=== PATIENT | female | born 2000 | race Caucasian/White ===

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

== ENCOUNTER 2025-02-23 22:14 | Emergency (ER) | payer OTHER, SELFPAY ==
[2025-02-23 22:15] VITALS: BP 139/88; PULSE 80; RESP 16; TEMP 36.9; O2SAT 100; BMI 24.0
[2025-02-23 22:47] LABS: Hematocrit 37.2 % (37-47); Hemoglobin 13.0 g/dL (12.0-15.0); Immature Granulocytes Count 0.030 X10^3/uL (0.0-0.0); Mean Corp Hgb Conc 34.9 g/dL (32-36); Mean Corpuscular Volume 90.1 fL (81-99); Mean Platelet Vol. 10.7 fl (6.2-12.0); NRBC Flagged by Analyzer 0 % (0-5); Platelet Count 203 K/mm3 (150-450); RBC Distribution Width CV 12.5 % (11.6-14.6); RBC Distribution Width SD 41.0 fl (35.1-43.9); Red Blood Count 4.13 M/mm3 (4.2-5.4); White Blood Count 8.2 K/mm3 (4.4-11.0)
--- NOTE | 2025-02-23 22:56 | US_ITS ---
PROCEDURE: TRANSVAGINAL W/PREG US 02/23/2025 REASON FOR EXAM: CONCERN FOR ECTOPIC, LEFT PAIN TECHNIQUE: TRANSVAGINAL W/PREG US COMPARISON: No FINDINGS Within the uterine cavity, there is a gestational sac and yolk sac. No pole or heart tones. Estimated gestational age of 5 weeks and 2 days by mean sac diameter. Right ovary measures 1 x 2 x 3 cm with blood flow. The left ovary measures 1 x 2 x 3 cm with blood flow. No pelvic free fluid. US/Transvaginal w/Preg US IMPRESSION: Intrauterine gestation. Viability is not yet determined. Consider follow up i alva. [facility]
--- NOTE | 2025-02-23 22:56 | ED.VIS.FEGU ---
HPI HPI - Female History of Present Illness Chief Complaint: Vag Bld, Preg Narrative Narrative: Patient is a 25-year-old female who presented to the emergency department chief complaint of lower abdominal pain, vaginal spotting that started about 24 hours ago. She states that she called the on-call [employer]ICE [employer]PATCHER and they are concerned that this could be ectopic therefore they sent her here to be further evaluated. Patient states that they did not have intercourse prior to her bleeding starting. States that overall she does not feel well and is having pain in the left lower quadrant of her abdomen. PFSH PFSH Medical History no medical history Home Medications ?Medication ?Instructions ?Recorded ?Last Taken ?Type NK 08/22/18 Unknown History Allergy/AdvReac Type Severity Reaction Status Date / Time amoxicillin (From Augmentin) Allergy Rash Verified 02/23/25 22:47 clavulanic acid (From Allergy Rash Verified 02/23/25 22:47 Augmentin) Family History no significant family his Surgical History no surgical history Social History Smoking Status: Never smoker ROS ROS ED ROS Narrative Constitutional: Denies any fevers or chills Cardiovascular: Denies chest pain Respiratory: Denies cough wheezing shortness of breath Abdomen: Complains of abdominal pain as noted above as well as nausea but states is secondary to IV placement : Denies any urinary symptoms but does complain of vaginal spotting as noted above Neurological: Denies any numbness, wheeze, tingling Skin: Denies any rashes or lesions EXAM Physical Exam Narrative Exam Narrative: General: Patient was lying in bed rest comfortably did not appear to be in acute distress Head: Atraumatic, normocephalic Eyes: PERRL bilaterally, EOMI about a, no conjunctival injection noted Neck: Soft, supple, trachea midline Cardiovascular: Regular rate and rhythm Respiratory: Clear to auscultation bilaterally Abdomen: Soft, nondistended, tenderness to palpation in the left lower quadrant no rebound or guarding on exam Extremities: +5/5 strength noted in the bilateral upper and lower extremities Neurological: Patient follow commands knew that she was at [facility] year is 2024 Skin: Warm, dry, intact no rashes or lesions noted Const Vital Signs: 02/23/25 22:15 Temperature 98.4 F Temperature Source Oral Pulse Rate 80 Respiratory Rate 16 Blood Pressure 139/88 H Blood Pressure Mean 105 Pulse Ox 100 Oxygen Delivery Method Room Air MDM MDM MDM Narrative Medical decision making narrative: Patient is a 25-year-old female who presents to the emergency department chief complaint of left lower quadrant abdominal pain, vaginal spotting and concern for ectopic . Patient once again states that she believes that she is approximately 5 weeks . On the differential diagnosis includes but not limited to ectopic , threatened miscarriage, miscarriage, UTI. Once workup is obtained reviewed she will be reevaluated. Patient states that she follows with a practice in [place]. Patient CBC reviewed showed no evidence leukocytosis white blood count normal 8.2, he was 13, platelet count of 203. Patient sodium was 130, potassium normal 3.9, creatinine was 0.64. Patient's AST and ALT were 14 and 10 respectively. Patient lipase was 33, hCG quant was 2539 with positive test. Patient's urinalysis reviewed showed no evidence of infection. Patient's ultrasound transvaginal was reviewed which showed intrauterine gestation no pelvic free fluid noted. Called and discussed with on-call physician for [employer] no doc Dr. Garcia who states that she can follow-up with her doctor tomorrow and have a repeat quant in 48 hours. Patient was placed on pelvic rest. She is encouraged return with worsening symptoms or concerns. She is agreeable to plan as well as her significant other bedside all question concerns answered she was discharged home in stable condition. Lab Data Labs: Laboratory Results - last 24 hr 02/23/25 02/24/25 22:38 00:01 WBC 8.2 RBC 4.13 L Hgb 13.0 Hct 37.2 MCV 90.1 MCH 31.5 MCHC 34.9 RDW Std Deviation 41.0 RDW Coeff of Ren 12.5 Plt Count 203 MPV 10.7 Immature Gran % (Auto) 0.400 Neut % (Auto) 47.2 Lymph % (Auto) 39.2 [place] % (Auto) 10.4 H Eos % (Auto) 2.2 Baso % (Auto) 0.6 Absolute Neuts (auto) 3.9 Absolute Lymphs (auto) 3.20 Nucleated RBC % 0 Sodium 138 Potassium 3.9 Chloride 104 Carbon Dioxide 22.6 Anion Gap 11 BUN 15 Creatinine 0.64 L Estim Creat Clear Calc 131.81 Est GFR (MDRD) Non-Af 126 BUN/Creatinine Ratio 23.6 H Glucose 90 Calcium 9.4 Total Bilirubin 0.21 AST 14 ALT 10 Alkaline Phosphatase 58 Total Protein 6.9 Albumin 4.3 Globulin 2.6 Albumin/Globulin Ratio 1.7 Lipase 33 HCG, Quant 2539 H Serum , Qual POSITIVE Urine Color Yellow Urine Clarity Clear Urine pH 6.5 Ur Specific [place] 1.015 Urine Protein Negative Urine Glucose (UA) Normal Urine Ketones Negative Urine Occult Blood Negative Urine Nitrite Negative Urine Bilirubin Negative Urine Urobilinogen Normal Ur Leukocyte Esterase Negative Urine RBC 0 SEEN Urine WBC 0 SEEN Ur Squamous Epith Cells 0-5 SEEN Urine Bacteria 1+ Urine Mucus 1+ Radiography Diagnostic Testing: Clinical Impression(s) from Imaging Studies Obstetrics Ultrasound 02/23/25 22:56 IMPRESSION: Intrauterine gestation. Viability is not yet determined. Consider follow up imaging. Reading Location: [place] [address] Discharge Plan Triage Chief Complaint: Vag Bld, Preg ED Provider: Ricky Leblanc Dx/Rx/DC Orders Clinical Impression: Vaginal bleeding affecting early , Abdominal pain Prescriptions: No Action NK Primary Care Provider: Care Physician,No Primary Referrals: Care Physician,No Primary [Primary Care Provider] - Activity Restrictions/Additional Instructions: You were placed on pelvic rest until you are cleared by your POLICE RADIO DISPATCHER meaning do not insert anything in your vagina. Your ultrasound here did show a intrauterine gestation you were given a hard copy of your results for your own records and to show your POLICE RADIO DISPATCHER. Your quant level was noted to be 2539. Call your OBs office tomorrow morning when they open up for a follow-up appointment. You will need a repeat quant in 48 hours. Return with worsening symptoms or any other concerns Print Language: Occitan Disposition Disposition: Home, Self Care
[2025-02-23 23:02] LABS: Internal QC Validated? YES +Cl - CLEAR BKGD; Record Kit Lot#, Serum Preg. 0000962302
[2025-02-23 23:03] LABS: Pregnancy, Serum, hCG Quali. POSITIVE Negative
[2025-02-23 23:11] LABS: AST(SGOT) 14 U/L (<=31); Alanine Aminotransfer ALT/SGPT 10 U/L (<=34); Albumin, Serum 4.3 g/dL (3.5-5.0); Alkaline Phosphatase 58 U/L (35-104); Anion Gap 11 (5-15); BUN 15 mg/dL (4-19); BUN/Creat Ratio 23.6 RATIO (10-20); Calcium,Total 9.4 mg/dL (7.6-11.0); Carbon Dioxide 22.6 mmol/L (21.0-32.0); Chloride 104 mmol/L (98-108); Estimated Creatinine Clearance 131.81 ml/min (50-250); Globulin 2.6 g/dL (2.2-4.2); Glucose 90 mg/dL (70-99); Lipase 33 U/L (13-75); Potassium 3.9 mmol/L (3.3-5.1)
--- OUTSIDE RECORDS SUMMARY | 2025-02-23 23:12 | XMS RPT_ITS | CCD ---
Author Organization [facility] Care Team Providers Care Faculty Criminal Justice Name Role Phone ELVA PRIETO Unavailable Unavailable REFERRED, SELF Unavailable Unavailable BONY URIOSTEGUI Unavailable Unavaila Prasanna Raya Attending Unavailable Care Physician, No Primary Primary Care Unava ilable ELVA PRIETO Primary Care Unavailable COMFORT GALLAGHER Attending Unavailabl e NO FAMILY PHYSICIAN, 837 Primary Care Unavail able Allergies Allergy Classification Reported Allergen(s) Allergy Type Date of Onset Reaction(s) Facility (1 source) Amoxicillin Drug Allergy 9 [facility] Repository (1 source) Clavulanate Drug Allergy 9 [facility] Repository (1 source) AMOXICILLIN-POT CLAVULANATE; Translations: [AMOXICILLIN-POT CLAVULANATE] Propensity to adverse reactions to drug (disorder) 9 [facility] Other [place] Repository Problems Problem Classification Problem Date Documented Da te Episodic/Chronic Other non-traumatic joint disorders (1 source) Pain in right ankle and joints of right foot; Translations: [Acute right ankle pain] Onset: 05-31-2024 Episodic Sprains and strains (1 source) Sprain of unspecified ligament of right ankle, initial encounter; Translations: [Sprain of right ankle, unspecified ligament, initial encounter] Onset: 05-31-2024 Episodic Results Test Name Value Interpretation Reference Range Facil ity ALLIED HEALTHon 05-31-2024 ALLIED HEALTH HNO ID: [id number] Author: SAIMA GAINES RT(R) Service: Radiology Author Type: Technologist Type: Allied Health Filed: 05/31/2024 12:19 Note Text: Radiology Service Progress Note PATIENT NAME: John Mann DATE OF SERVICE: May 31, 2024 TIME: 12:18 PM PATIENT IDENTITY VERIFICATION COMPLETED USING TWO (2) IDENTIFIERS: Name and Date of confirmed by patient verbally. FALL SCREENING: Has the patient had 2 falls in the last year or 1 fall with injury or currently using an Ambulatory Assistive Device (Walker, Cane, Wheelchair, Crutches, etc.)? Emergency Room Patient: Screened in ED PATIENT GENDER DATA: Female. status: : No status: NO. 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 Pt stable and ambulatory. IV removed. No further questions at this time. [facility] ED PROV NOTEon 05-31-2024 ED PROV NOTE HNO ID: [id number] Author: COMFORT GALLAGHER MD Service: ? Author Type: Physician Type: ED Provider Notes Filed: 05/31/2024 13:29 Note Text: ED Provider Note Patient Name: John Mann : 2000 SERVICE DATE: 05/31/24 History Patient presents with: Ankle Injury: Pt was at an open burn call when she fell down stairs and rolled R ankle, has Hx of a strain in that ankle 4 years ago 4-year-old female with history of generalized anxiety disorder and depression who presents with right ankle pain. She reports twisting her ankle while running down stairs today while working a open burn prior to arrival. She has noted swelling and pain in the lateral aspect of her ankle since then. 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 Generalized anxiety disorder due to Depo? PAST SURGICAL HISTORY Procedure Laterality Date TUMOR REMOVAL (SPECIFY LOCATION) HX Right growth removal under right breast when 8 years old FAMILY HISTORY Problem Relation Age of Onset Hypertension Mother No Known Problems Sister No Known Problems Brother Hypertension Maternal Grandfather Heart disease Maternal Grandfather Prostate Cancer Other 62 Cancer Other female Social History Tobacco Use Smoking status: Never Smokeless tobacco: Never Vaping Use Vaping status: Never Used Substance and Sexual Activity Alcohol use: Never Drug use: Never Sexual activity: Yes Partners: Male control/protection: Condom ALLERGIES Allergen Reactions Augmentin [Amoxicil* Rash Review of Systems Musculoskeletal: Positive for joint swelling. Physical Exam Vitals [05/31/24 1149] BP Pulse Temp Temp src Resp SpO2 Weight Height 119/51 83 36.8 ?C (98.3 ?F) Oral 18 99 % 70.3 kg (155 lb) -- Physical Exam Vitals and nursing note reviewed. Constitutional: Appearance: Normal appearance. HENT: Head: Normocephalic and atraumatic. Musculoskeletal: Right ankle: Swelling present. No deformity or ecchymosis. Tenderness present over the lateral malleolus. Decreased range of motion. Normal pulse. Skin: General: Skin is warm and dry. Capillary Refill: Capillary refill takes less than 2 seconds. Neurological: General: No focal deficit present. Mental Status: She is alert and oriented to person, place, and time. Psychiatric: Mood and Affect: Mood normal. Behavior: Behavior normal. Thought Content: Thought content normal. Judgment: Judgment normal. Diagnostic Testing ED Labs Ordered and Reviewed - No data to display Procedures ED Course / Clinical Impression Clinical Impressions as of 05/31/24 1316 Sprain of right ankle, unspecified ligament, initial encounter Acute right ankle pain MDM / Disposition / Plan 24-year-old female who presents with right lateral ankle pain after running down stairs while at work twisting her ankle. Workup in ED reveals negative x-ray of ankle and foot. While in ED a Aircast was placed. She will be discharged home with a prescription for naproxen. Recommendations for ice and elevation. Follow-up with Ortho if no improvement. History and Record Review Clinical information obtained from an independent historian. History obtained from or confirmed by: friend. Differential Diagnoses - Fracture rule out - Sprain rule out - Contusion rule out Management I performed an independent interpretation of the following:imaging Imaging: My interpretation is No ankle fracture on film Radiology Reports XR ANKLE GENERAL 3V AP/LAT/OBL RIGHT Final Result IMPRESSION: No acute osseous abnormality. Remote RIGHT medial malleolus fracture. Photographic Platemaker: ERIKA Transcribe Date/Time: May 31 2024 12:50P Dictated by : JOSELITO DUNCAN DO This examination was interpreted and the report reviewed and electronically signed by: JOSELITO DUNCAN DO on May 31 2024 12:54PM EST XR FOOT GENERAL 3V AP/LAT/OBL RIGHT Final Result IMPRESSION: No acute osseous abnormality. Remote RIGHT medial malleolus fracture. Photographic Platemaker: PSCB Transcribe Date/Time: May 31 2024 12:50P Dictated by : JOSELITO DUNCAN DO This examination was interpreted and the report reviewed and electronically signed by: JOSELITO DUNCAN DO on May 31 2024 12:54PM EST XR TIBIA FIBULA 2V AP/LAT RIGHT Final Result IMPRESSION: No acute osseous abnormality. Remote RIGHT medial malleolus fracture. Photographic Platemaker: PSCB Transcribe Date/Time: May 31 2024 12:50P Dictated by : JOSELITO DUNCAN DO This examination was interpreted and the report reviewed and electronically signed by: JOSELITO DUNCAN DO on May 31 2024 12:54PM EST Re-evaluation vital signs in acceptable range Comfort Gallagher MD Disposition The patient was discharged. Counseled patient regarding radiology results and suspected diagnosis. SIGNATURE: Comfort Gallagher MD - COMFORT GALLAGHER 05/31/24 1329 [facility] XR ANKLE 3V AP/LAT/OBL RTon 05-31-2024 XR ANKLE 3V AP/LAT/OBL RT * * *Final Report* * * DATE OF EXAM: May 31 2024 12:15PM MDX 5297 - XR ANKLE 3V AP/LAT/OBL RT / PROCEDURE REASON: Fracture, ankle * * * * Physician Interpretation * * * * EXAMINATION: XR ANKLE 3V AP/LAT/OBL RT, XR TIBIA FIBULA 2V AP/LAT RT, XR FOOT 3V AP/LAT/OBL RT PATIENT/TECHNOLOGIST PROVIDED HISTORY: Trauma, pain in rt leg/foot. R/O Fx CLINICAL INFORMATION: 24 years old Female with Fracture, ankle TECHNIQUE: XR ANKLE 3V AP/LAT/OBL RT, XR TIBIA FIBULA 2V AP/LAT RT, XR FOOT 3V AP/LAT/OBL RT Laterality: RIGHT Number of different views (projections): 2 views of the RIGHT tibia and fibula 3 views of the RIGHT ankle and 3 views of the RIGHT foot. COMPARISON: Right ankle radiographs 12/03/2018 RESULT: Right tibia and fibula: No acute fracture. Joint spaces are maintained. Right ankle: Corticated ossicle adjacent to the medial malleolus secondary to remote fracture. No acute fracture. Ankle mortise is maintained. Right foot: No fracture. Joint spaces are maintained. IMPRESSION: No acute osseous abnormality. Remote RIGHT medial malleolus fracture. Photographic Platemaker: ERIKA Transcribe Date/Time: May 31 2024 12:50P Dictated by : JOSELITO DUNCAN DO This examination was interpreted and the report reviewed and electronically signed by: JOSELITO DUNCAN DO on May 31 2024 12:54PM EST [id number] [facility] XR FOOT 3V AP/LAT/OBL RTon 1 XR FOOT 3V AP/LAT/OBL RT * * *Final Report* * * DATE OF EXAM: May 31 2024 12:15PM MDX 5337 - XR FOOT 3V AP/LAT/OBL RT / PROCEDURE REASON: Foot pain * * * * Physician Interpretation * * * * EXAMINATION: XR ANKLE 3V AP/LAT/OBL RT, XR TIBIA FIBULA 2V AP/LAT RT, XR FOOT 3V AP/LAT/OBL RT PATIENT/TECHNOLOGIST PROVIDED HISTORY: Trauma, pain in rt leg/foot. R/O Fx CLINICAL INFORMATION: 24 years old Female with Fracture, ankle TECHNIQUE: XR ANKLE 3V AP/LAT/OBL RT, XR TIBIA FIBULA 2V AP/LAT RT, XR FOOT 3V AP/LAT/OBL RT Laterality: RIGHT Number of different views (projections): 2 views of the RIGHT tibia and fibula 3 views of the RIGHT ankle and 3 views of the RIGHT foot. COMPARISON: Right ankle radiographs 12/03/2018 RESULT: Right tibia and fibula: No acute fracture. Joint spaces are maintained. Right ankle: Corticated ossicle adjacent to the medial malleolus secondary to remote fracture. No acute fracture. Ankle mortise is maintained. Right foot: No fracture. Joint spaces are maintained. IMPRESSION: No acute osseous abnormality. Remote RIGHT medial malleolus fracture. Photographic Platemaker: ERIKA Transcribe Date/Time: May 31 2024 12:50P Dictated by : JOSELITO DUNCAN DO This examination was interpreted and the report reviewed and electronically signed by: JOSELITO DUNCAN DO on May 31 2024 12:54PM EST [id number] [facility] XR TIBIA FIBULA 2V AP/LAT RT on 05-31-2024 XR TIBIA FIBULA 2V AP/LAT RT * * *Final Report* * * DATE OF EXAM: May 31 2024 12:15PM MDX 5266 - XR TIBIA FIBULA 2V AP/LAT RT / PROCEDURE REASON: Fracture / Dislocation * * * * Physician Interpretation * * * * EXAMINATION: XR ANKLE 3V AP/LAT/OBL RT, XR TIBIA FIBULA 2V AP/LAT RT, XR FOOT 3V AP/LAT/OBL RT PATIENT/TECHNOLOGIST PROVIDED HISTORY: Trauma, pain in rt leg/foot. R/O Fx CLINICAL INFORMATION: 24 years old Female with Fracture, ankle TECHNIQUE: XR ANKLE 3V AP/LAT/OBL RT, XR TIBIA FIBULA 2V AP/LAT RT, XR FOOT 3V AP/LAT/OBL RT Laterality: RIGHT Number of different views (projections): 2 views of the RIGHT tibia and fibula 3 views of the RIGHT ankle and 3 views of the RIGHT foot. COMPARISON: Right ankle radiographs 12/03/2018 RESULT: Right tibia and fibula: No acute fracture. Joint spaces are maintained. Right ankle: Corticated ossicle adjacent to the medial malleolus secondary to remote fracture. No acute fracture. Ankle mortise is maintained. Right foot: No fracture. Joint spaces are maintained. IMPRESSION: No acute osseous abnormality. Remote RIGHT medial malleolus fracture. Photographic Platemaker: PSCB Transcribe Date/Time: May 31 2024 12:50P Dictated by : JOSELITO DUNCAN DO This examination was interpreted and the report reviewed and electronically signed by: JOSELITO DUNCAN DO on May 31 2024 12:54PM EST [id number] [facility] Stress Reporton 12-13-2023 Stress Report [facility] [address] [place] [address] MR#: [id number] Acct: [id number] Name: JOHN MANN Rep #: [id number] : 2000 23 From: Sarah Madrigal MD Primary Care: Care Physician,No Primary Status: REG REF Referring Dr: Sex: F C Stress Test Report Date: 12/13/2023 Procedure: Exercise tolerance test Indications: Preemployment assessment Consent: Per the patient Procedure: The patient exercised on a Jamie protocol for 12 minutes achieving a peak heart rate of 193 bpm (97% predicted maximal heart rate) with a peak blood pressure 128/70 mmHg and a peak MET capacity of approximately 13.7 MET's. The baseline ECG demonstrated normal sinus rhythm. The peak exercise ECG demonstrated sinus tachycardia with no ischemic changes. There were no cardiac dysrhythmias pretest, during exercise, or recovery. The functional capacity was considered excellent. The patient had no complaints of chest discomfort during exercise or recovery. The examination was discontinued secondary to target heart rate being achieved. Impression: 1. Technically adequate (percent predicted maximal heart rate greater than 85%) exercise tolerance test 2. Peak exercise ECG with no ischemic changes 3. There were no cardiac dysrhythmias during exercise or recovery This note was generated with [employer] dictation software. It may contain incorrect words, spelling, and punctuation that were not noted in checking the note before signing. 12/13/23 1230 Date Sarah Madrigal MD CC: Dr. Prasanna Eason MD; No Primary Care Physician Date Dictated: 12/13/23 1229 Date Transcribed: 12/13/231228 Photographic Platemaker: KENDALL Yuen [facility] Encounters Encounter Date Encounter Type Care Provider Facility Start: 02-17-2025 ambulatory 837 NO FAMILY PHYSICIAN Facility:[facility] Start: 05-31-2024 End: 05-31-2024 Emergency department patient visit ELVA PRIETO Facility:[facility] Start: 12-13-2023 ambulatory Prasanna Eason Facility[facility] Start: 11-12-2017 End: 11-12-2017 Ambulatory ELVA PRIETO [facility] Payers Date Payer Category Payer Unknown [id number] 2023 Self-pay 2000 Unknown [id number] Unknown [id number] Unknown [id number] Unknown Summary Purpose Family History No Family History Records FoundNo Family History Records FoundNo Family History Records FoundNo Family History Records Found Advance Directives No Advanced Directives Records FoundNo Advanced Directives Records FoundNo Advanced Directives Records FoundNo Advanced Directives Records Found Additional Source Comments INFORMATION SOURCE (unrecogn ized section and content) DATE CREATED AUTHOR 01/24/2018 [facility] DATE CREATED AUTHOR AUTHOR'S ORGANIZ ATION 12/15/2023 [facility] DATE CREATED AUTHOR AUTHOR'S ORGANIZ ATION 06/01/2024 [facility] DATE CREATED AUTHOR AUTHOR'S ORGANIZ ATION 02/21/2025 [facility] FOR RECORDS PERTAINING TO PATIENTS WHO ARE OR HAVE BEEN ENROLLED IN A CHEMICAL DEPENDENCY/SUBSTANCEABUSE PROGRAM, SOME INFORMATION MAY BE OMITTED. This clinical summary was aggregated from multiple sources. Caution should be exercised in using it in the provision of clinical care. This summary normalizes information from multiple sources, and as a consequence, information in this document may materially change the coding, format and clinical context of patient data. In addition, data may be omitted in some cases. CLINICAL DECISIONS SHOULD BE BASED ON THE PRIMARY CLINICAL RECORDS. [facility]. provides no warranty or guarantee of the accuracy or completeness of information in this document.
[2025-02-23 23:41] LABS: hCG Titer Quant., Serum 2539 mIU/mL (<9 non-preg)
[2025-02-24 00:08] LABS: Red Blood Cells-Urine 0 SEEN /hpf (0-5)
[2025-02-24 00:12] LABS: Color, Urine Yellow (Yellow); Glucose, Dipstick Normal (Normal); Ketone-Dipstick Negative (Negative); Leukocyte Esterase-Dipstick Negative /ul (Negative); Nitrite-Dipstick Negative (Negative); Occult Blood-Urine Negative /ul (Negative); Protein-Dipstick Negative (Negative); Specific Gravity, Urine 1.015 (1.002-1.030); Urine Bilirubin Dipstick Negative (Negative)
[2025-02-24 00:15] VITALS: BP 123/84; PULSE 71; RESP 16; O2SAT 99
[2025-02-24 00:22] LABS: Mucous, Urine 1+ /hpf (<or=2+); Squamous Epithelial Cells - UA 0-5 SEEN /hpf (5-10)
[2025-02-24 00:45] VITALS: BP 123/84; PULSE 71; RESP 16; TEMP 36.7; O2SAT 99
== END 2025-02-24 00:49 | disposition home or self-care (01) ==
PROVIDERS: Emergency Provider Emergency Medicine; Visit Provider Emergency Medicine
DX: O20.9 Hemorrhage in early pregnancy, unspecified (principal); R10.9 Unspecified abdominal pain; Z3A.01 Less than 8 weeks gestation of pregnancy
CPT/HCPCS: 76817; 80053; 81001; 83690; 84702; 84703; 85025; 99283; A4216